=== PATIENT | female | born 1940 | race Caucasian/White ===

== ENCOUNTER 2018-09-05 12:11 | Emergency (ER) | payer OTHER ==
[~2018-09-05] VITALS: Ht 165.1 cm; Wt 69.0 kg
[2018-09-05] MEDS ORDERED: HYDROmorphone 2 MG/ML, 1ML ONE (12:51)
[2018-09-05] MEDS ORDERED: ONDANSETRON ODT 4 MG ONE (12:56)
[2018-09-05] MEDS ORDERED: ONDANSETRON ODT 4 MG PO ONE (13:00)
[2018-09-05] MEDS ORDERED: HYDROmorphone 2 MG/ML, 1ML IM ONE (13:00)
[2018-09-05 14:41] VITALS: BP 135/60
== END 2018-09-05 14:40 | disposition home or self-care (01) ==
LOC: ED 14:34
DX: S52.571A Other intraarticular fracture of lower end of right radius, initial encounter for closed fracture (principal); I10 Essential (primary) hypertension; E11.9 Type 2 diabetes mellitus without complications; F17.210 Nicotine dependence, cigarettes, uncomplicated; W01.0XXA Fall on same level from slipping, tripping and stumbling without subsequent striking against object, initial encounter; Y93.89 Activity, other specified; Y92.009 Unspecified place in unspecified non-institutional (private) residence as the place of occurrence of the external cause; Y99.8 Other external cause status
CPT/HCPCS: 29125; 73110; 73130; 96372; 99284; J1170; Q0162